=== PATIENT | male | born 2005 | race Asian ===

== ENCOUNTER 2024-07-29 21:37 | Emergency (ER) | payer OTHER, SELFPAY ==
[2024-07-29 21:38] VITALS: BP 134/99; PULSE 82; RESP 18; TEMP 36.3; O2SAT 98; BMI 25.4
[2024-07-29] MEDS: Lidocaine 1% (20 ml mdv) 20 ML Vial 10 ML INFILT (22:12)
--- NOTE | 2024-07-29 22:16 | EX.ED.DYSGE1 ---
HPI History of Present Illness Chief Complaint: Laceration Narrative Narrative: Patient is a 19-year-old male with no known significant past medical history who presents to the emergency department the chief complaint of laceration to the left middle index finger. He states that he was cooking earlier and noted that the knife slipped cutting his finger. He states that his tetanus shot was updated approximately 3 years ago. PFSH PFSH Medical History no medical history Allergy/AdvReac Type Severity Reaction Status Date / Time iodine Allergy PT UNSURE Verified 07/29/24 21:38 OF REACTION Family History no significant family his Surgical History no surgical history Social History Smoking Status: Never smoker ROS ROS ED ROS Narrative Neurological: Denies any numbness, weakness, tingling Musculoskeletal: Complains of finger laceration as noted above Skin: Complains of finger laceration as noted above EXAM Physical Exam Narrative Exam Narrative: General: Patient lying in bed rest comfortably did not appear to be acute distress Head: Atraumatic, normocephalic Eyes: PERRL bilaterally, EOMI bilaterally Extremities: Patient has a complex approximately 1-1/2 cm laceration on the dorsal aspect of the left middle finger. Patient able to fully flex and extend his fingers in the left hand without any difficulty Neurological: Patient following commands knew that he was at [facility] year is 2024. Station grossly intact in the median ulnar radial nerve distribution bilaterally Skin: See extremities Const Vital Signs: 07/29/24 21:38 Temperature 97.3 F L Temperature Source Temporal Pulse Rate 82 Respiratory Rate 18 Blood Pressure 134/99 H Blood Pressure Mean 110 Pulse Ox 98 MDM MDM MDM Narrative Medical decision making narrative: Patient is a 19-year-old male who presents to the emergency department with chief complaint of finger laceration. On the differential diagnosis includes but not limited to avulsion, abrasion, laceration, retained foreign body. After discussion with the patient he would like to forego x-ray secondary to cost I notified him that there is a chance that we are missing a foreign body without x-ray and this can increase the chance of infection he states that he feels that there is a low probability of this and still would like to forego obtain x-ray. Patient had laceration repaired in the emergency department see procedure note for the details tolerated this well without complications. He is advised to watch out for signs infection and if these are to occur he is advised he needs to return to the emergency department. He is advised to follow-up with his doctor to have his sutures removed in approximately 5 to 7 days. He was advised that he should not soak the sutures. He is agreeable to plan he like to go home at this point time concerns answered he is discharged home in stable condition. Procedure note Procedure name: Laceration repair Indication: Reduce risk of infection Location: Left middle finger 1-1/2 cm complex laceration Preprocedure diagnosis: Laceration Postprocedure diagnosis: Repaired laceration Informed consent was obtained prior to procedure started. Procedure: The appropriate timeout was taken. The area was prepped and draped in usual sterile fashion. Local anesthesia was achieved using 2 cc of lidocaine 1% without epinephrine. Wound was copiously irrigated. 3 5-0 Ethilon interrupted sutures were placed. Estimated blood loss was less than 0.5 mL. Dressing was applied to the area and anticipatory guidance, as well as standard postprocedure care was explained. Return precautions are given. Patient tolerated procedure well without any complications. Follow-up visit for suture removal and evaluation of laceration. Discharge Plan Triage Chief Complaint: Laceration ED Provider: Terrell Aguilar Dx/Rx/DC Orders Clinical Impression: Finger laceration Instructions: ED Laceration, All Closures Primary Care Provider: Care Physician,Lizabeth Primary Referrals: Care Physician,Lizabeth Primary [Primary Care Provider] - Sara Khan Melba, [employer] [[employer]] - Activity Restrictions/Additional Instructions: Follow-up with your doctor to have your sutures removed in approximately 5 to 7 days if you do not have 1 you can return to the emergency department to have them removed. Do not soak your sutures. Watch out for signs infection such as surrounding redness, purulent drainage. Return with any other concerns Print Language: Faroese Disposition Disposition: Home, Self Care
[2024-07-29 23:02] VITALS: BP 118/70; PULSE 82; RESP 18; TEMP 36.3; O2SAT 98
== END 2024-07-29 23:03 | disposition home or self-care (01) ==
PROVIDERS: Emergency Provider Emergency Medicine; Visit Provider Emergency Medicine
DX: S61.213A Laceration without foreign body of left middle finger without damage to nail, initial encounter (principal); W26.0XXA Contact with knife, initial encounter; Y93.G3 Activity, cooking and baking
CPT/HCPCS: 12001; 99282